=== PATIENT | female | born 1965 | race Caucasian/White ===

== ENCOUNTER 2020-02-14 09:06 | Emergency (ER) | payer OTHER ==
[~2020-02-14] VITALS: Ht 160 cm; Wt 69.6 kg
--- NOTE | 2020-02-14 09:48 | PHYS DOC ---
General Adult EDM: Chief Complaint: VAGINAL PROBLEM HPI: HPI: 54-year-old female presents with concern for STD. She was told by her current boyfriend a previous girlfriend of his informed him that she has genital herpes. The patient and her boyfriend have been having intercourse. He has not had any symptoms of genital herpes. The patient has not had any symptoms. She is just worried and wants to make sure she does not have any STDs at this time. She has had some itching and mild discomfort was initially worried about a yeast infe ction. She has had occasional yeast infections in the past. No history of STDs. She does have a reported history of external vascularity of the cervix. She does get regular Pap smears as recommended. She denies fever or chills. She has no other complaints at this time. Review of Systems: Review of Systems: Constitutional: Denies fever or chills Eyes: Denies change in visual acuity HENT: Denies nasal congestion or sore throat Respiratory: Denies cough or shortness of breath Cardiovascular: Denies chest pain or edema GI: Denies abdominal pain, nausea, vomiting, bloody stools or diarrhea : Vaginal pruritus Musculoskeletal: Denies back pain or joint pain Integument: Denies rash Neurologic: Denies headache, focal weakness or sensory changes Endocrine: Denies polyuria or polydipsia Lymphatic: Denies swollen glands Psychiatric: Denies depression or anxiety Allergies: Allergies: Allergies Coded Allergies Type Severity Reaction Last Updated Verified No Known Drug Allergies 02/14/20 No Physical Exam: PE: Constitutional: Well developed, well nourished, no acute distress, non-toxic appearance. [] HENT: Normocephalic, atraumatic, bilateral external ears normal, oropharynx moist, no oral exudates, nose normal. [] Eyes: PERRLA, EOMI, conjunctiva normal, no discharge. [] Neck: Normal range of motion, no tenderness, supple, no stridor. [] Cardiovascular: Heart rate regular rhythm, no murmur [] Lungs & Thorax: Bilateral breath sounds clear to auscultation [] Abdomen: Bowel sounds normal, soft, no tenderness, no masses, no pulsatile masses. [] Skin: Warm, dry, no erythema, no rash. [] Back: No tenderness, no CVA tenderness. [] Extremities: No tenderness, no cyanosis, no clubbing, ROM intact, no edema. [] Neurologic: Alert and oriented X 3, normal motor function, normal sensory function, no focal deficits noted. [] Psychologic: Affect normal, judgement normal, mood normal. : normal external genitalia, no rash or lesions, mild thin vaginal discharge, small amount of blood at the cervical opening with some visible blood vessels. No pain with exam. [] EKG: EKG: [] Radiology/Procedures: Radiology/Procedures: [] Heart Score: Risk Factors: Risk Factors: DM, Current or recent (<one month) smoker, HTN, HLP, family history of CAD, obesity. Risk Scores: Score 0 - 3: 2.5% MACE over next 6 weeks - Discharge Home Score 4 - 6: 20.3% MACE over next 6 weeks - Admit for Clinical Observation Score 7 - 10: 72.7% MACE over next 6 weeks - Early Invasive Strategies Course & Med Decision Making: Course & Med Decision Making Pertinent Labs and Imaging studies reviewed. (See chart for details) The patient's wet prep is negative. Her GC chlamydia is pending and results will be called to the patient in a few days as necessary. She is stable for discharge at this time. [] Dragon Disclaimer: Jody Disclaimer: This electronic medical record was generated, in whole or in part, using a voice recognition dictation system. Departure Departure: Impression: Primary Impression: Concern about STD in female without diagnosis Disposition: 01 DC HOME SELF CARE/HOMELESS Condition: STABLE Referrals: PCP,UNKNOWN (PCP) Patient Instructions: VagMumtaz sen RYAN DO Feb 14, 2020 09:48
[2020-02-14 10:24] VITALS: BP 138/98
[2020-02-17 01:11] LABS: CHLAMYDIA PROBE Negative (Negative)
== END 2020-02-14 10:26 | disposition home or self-care (01) ==
LOC: ER 09:06
DX: Z20.2 Contact with and (suspected) exposure to infections with a predominantly sexual mode of transmission (principal)
CPT/HCPCS: 87491; 87591; 99283; Q0111; 36415